=== PATIENT | male | born 1990 | race Caucasian/White ===

== ENCOUNTER 2017-05-05 16:09 | Emergency (ER) | payer BC ==
--- NOTE | 2017-05-05 16:31 | ER Document Report ---
ED Extremity Problem, Lower - General Chief Complaint: Foot Pain Stated Complaint: PAIN IN FEET Time Seen by Provider: 05/05/17 16:18 Mode of Arrival: Ambulatory Information source: Patient TRAVEL OUTSIDE OF THE [place] 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 but takes warfarin 10 mg twice daily since 2012, he denies any specific injury, has never been evaluated by podiatry and does not wear orthotics, however the he does have a inverted gait with flat arches - Related Data Allergies/Adverse Reactions: Penicillins Allergy (Verified 05/05/17 16:28) Past Medical History - General Information source: Patient - Social History Smoking Status: Never Smoker Family History: Reviewed & Not Pertinent Pulmonary Medical History: Reports: Hx Asthma Renal/ Medical History: Denies: Hx Peritoneal Dialysis - Immunizations Hx Diphtheria, Pertussis, Tetanus Vaccination: Yes Review of Systems - Review of Systems Constitutional: No symptoms reported EENT: No symptoms reported Cardiovascular: No symptoms reported Respiratory: No symptoms reported Gastrointestinal: No symptoms reported Genitourinary: No symptoms reported Male Genitourinary: No symptoms reported Musculoskeletal: See HPI Skin: No symptoms reported Hematologic/Lymphatic: No symptoms reported Neurological/Psychological: No symptoms reported -: Yes All other systems reviewed and negative Physical Exam - Vital signs Vitals: Temp Pulse Resp BP Pulse Ox 98.1 F 70 18 152/63 H 96 05/05/17 16:13 05/05/17 16:13 05/05/17 16:13 05/05/17 16:13 05/05/17 16:13 - Notes Notes: - General General appearance: Appears well, Alert In distress: None - HEENT Head: Normocephalic, Atraumatic Eyes: Normal Conjunctiva: Normal Extraocular movements intact: Yes Eyelashes: Normal Pupils: PERRL - Respiratory Respiratory status: No respiratory distress - Cardiovascular Rhythm: Regular - Abdominal Inspection: Normal - Back Back: Normal - Extremities General upper extremity: Normal inspection General lower extremity: Normal inspection distal sensation and motor is intact with 2+ DP pulses, patient has an inverted gait with flat arches - Neurological Neuro grossly intact: Yes Orientation: AAOx4 Rae Coma Scale Eye Opening: Spontaneous [place] Coma Scale Verbal: Oriented [place] Coma Scale Motor: Obeys Commands [place] Coma Scale Total: 15 - Psychological Associated symptoms: Normal affect, Normal mood - Skin Skin Temperature: Warm Skin Moisture: Dry Skin Color: Normal Course - Re-evaluation Re-evalutation: 05/05/17 17:38 Findings discussed with patient at bedside which are unremarkable for acute injury, he is noted to have a pes planus deformity which is likely the cause of his pain after landing on his feet for increased periods throughout the day, he was provided with hydrocodone Dosepak and information for follow-up with a glycerin operator, advised to return if symptoms worsen, patient acknowledges understanding and agreement with this plan - Vital Signs Vital signs: Temp Pulse Resp BP Pulse Ox 98.1 F 70 18 152/63 H 96 05/05/17 16:13 05/05/17 16:13 05/05/17 16:13 05/05/17 16:13 05/05/17 16:13 - Diagnostic Test Radiology reviewed: Image reviewed, Reports reviewed Discharge - Discharge Clinical Impression: Foot pain, bilateral Condition: Stable Disposition: HOME, SELF-CARE Additional Instructions: Follow up with your primary care provider in one to 2 days. Return to the emergency room immediately if symptoms worsen or any additional concerns. Prescriptions: Ibuprofen [Motrin 600 Mg Tablet] 600 mg PO TID #30 tablet Forms: Return to Work Referrals: TRUONG WINTERS DPM [ACTIVE STAFF] - Follow up as needed
--- NOTE | 2017-05-05 17:22 | RADIOLOGY REPORT (SQ) ---
EXAM DESCRIPTION: FOOT BILATERAL 3 VIEWS COMPLETED DATE/TIME: 05/05/2017 4:54 pm REASON FOR STUDY: pain, no injury COMPARISON: None. NUMBER OF VIEWS: Three views. TECHNIQUE: AP, lateral and oblique radiographic images acquired of the right and left foot. LIMITATIONS: None. FINDINGS: MINERALIZATION: Normal. BONES: No acute fracture or dislocation. No worrisome bone lesions. Pes planus deformity noted bila terally. JOINTS: No effusions. SOFT TISSUES: No soft tissue swelling. No radio opaque foreign body. OTHER: No other significant finding. IMPRESSION: No acute fracture or dislocation identified. Pes planus deformity noted bilaterally. TECHNICAL DOCUMENTATION: JOB ID: [id number] [employer]- All Rights Reserved
[2017-05-05] MEDS ORDERED: HYDROCODONE/ACETAMINOPHEN 5-325 MG 6 TAB/DSPK PO PRN (17:37)
[2017-05-05 17:45] VITALS: BP 149/67
== END 2017-05-05 17:45 | disposition home or self-care (01) ==
LOC: ER 16:09
DX: M21.42 Flat foot [pes planus] (acquired), left foot (principal); M21.41 Flat foot [pes planus] (acquired), right foot; R26.89 Other abnormalities of gait and mobility; M79.671 Pain in right foot; M79.672 Pain in left foot; J45.909 Unspecified asthma, uncomplicated; Z86.718 Personal history of other venous thrombosis and embolism; Z86.711 Personal history of pulmonary embolism; Z79.01 Long term (current) use of anticoagulants; Z88.0 Allergy status to penicillin
CPT/HCPCS: 99283

== ENCOUNTER 2017-05-09 22:59 | Emergency (ER) | payer BC ==
[2017-05-10] MEDS ORDERED: NAPROXEN 250 MG TABLET PO ONE (01:51)
--- NOTE | 2017-05-10 01:51 | ER Document Report ---
ED General - General Chief Complaint: Foot Pain Stated Complaint: FEET PAIN Time Seen by Provider: 05/10/17 01:01 Mode of Arrival: Ambulatory Information source: Patient Notes: 26-year-old male presents with complaints of bilateral foot pain. Patient notes he has a history of externally rotated feet. Patient denies any fevers or chills denies any shortness of breath bleeding. Patient is on Coumadin for DVTs. Patient notes the pain is only in the feet and ankles there is no pain in the calves or the legs themselves. TRAVEL OUTSIDE OF THE [place] IN LAST 30 DAYS: No - HPI Onset: Other Onset/Duration: Persistent Quality of pain: Achy Severity: Mild Pain Level: 1 Associated symptoms: Other Exacerbated by: Walking Relieved by: Denies Similar symptoms previously: Yes Recently seen / treated by doctor: Yes - Related Data Allergies/Adverse Reactions: Penicillins Allergy (Verified 05/05/17 16:28) Past Medical History - Social History Smoking Status: Never Smoker Cigarette use (# per day): No Chew tobacco use (# tins/day): No Smoking Education Provided: No Family History: Reviewed & Not Pertinent Patient has suicidal ideation: No Patient has homicidal ideation: No Pulmonary Medical History: Reports: Hx Asthma Renal/ Medical History: Denies: Hx Peritoneal Dialysis - Immunizations Hx Diphtheria, Pertussis, Tetanus Vaccination: Yes Review of Systems - Review of Systems Notes: REVIEW OF SYSTEMS: CONSTITUTIONAL : Denies fever, chills, or sweats. Denies recent illness. EENT: Denies eye, ear, throat, or mouth pain or symptoms. Denies nasal or sinus congestion or discharge. Denies throat, tongue, or mouth swelling or difficulty swallowing. CARDIOVASCULAR: Denies chest pain. Denies palpitations or racing or irregular heart beat. Denies ankle edema. RESPIRATORY: Denies cough, cold, or chest congestion. Denies shortness of breath, difficulty breathing, or wheezing. GASTROINTESTINAL: Denies abdominal pain or distention. Denies nausea, vomiting , or diarrhea. Denies blood in vomitus, stools, or per rectum. Denies black, tarry stools. Denies constipation. GENITOURINARY: Denies difficulty urinating, painful urination, burning, frequency, blood in urine, or discharge. MUSCULOSKELETAL: Bilateral ankle pain lateral malleolus SKIN: Denies rash, lesions or sores. HEMATOLOGIC : Denies easy bruising or bleeding. LYMPHATIC: Denies swollen, enlarged glands. NEUROLOGICAL: Denies confusion or altered mental status. Denies passing out or loss of consciousness. Denies dizziness or lightheadedness. Denies headache. Denies weakness or paralysis or loss of use of either side. Denies problems with gait or speech. Denies sensory loss, numbness, or tingling. Denies seizures. PSYCHIATRIC: Denies anxiety or stress. Denies depression, suicidal ideation, or homicidal ideation. ALL OTHER SYSTEMS REVIEWED AND NEGATIVE. Dictation was performed using [employer] recognition software PHYSICAL EXAMINATION: GENERAL: Well-appearing, well-nourished and in no acute distress. HEAD: Atraumatic, normocephalic. EYES: Pupils equal round and reactive to light, extraocular movements intact, sclera anicteric, conjunctiva are normal. ENT: Nares patent, oropharynx clear without exudates. Moist mucous membranes. NECK: Normal range of motion, supple without lymphadenopathy LUNGS: Breath sounds clear to auscultation bilaterally and equal. No wheezes rales or rhonchi. HEART: Regular rate and rhythm without murmurs ABDOMEN: Soft, nontender, nondistended abdomen. No guarding, no rebound. No masses appreciated. Musculoskeletal: Feet are bilaterally everted tender lateral malleolus NEUROLOGICAL: Cranial nerves grossly intact. Normal speech, normal gait. Normal sensory, motor exams PSYCH: Normal mood, normal affect. SKIN: Warm, Dry, normal turgor, no rashes or lesions noted. Physical Exam - Vital signs Vitals: Temp Pulse Resp BP Pulse Ox 98.5 F 65 18 128/76 H 96 05/09/17 23:03 05/09/17 23:03 05/09/17 23:03 05/09/17 23:03 05/09/17 23:03 Course - Re-evaluation Re-evalutation: 05/10/17 02:44 CBC CMP noted no significant abnormality patient INR is where he needs to be. He does not have any calf pain no signs of deep vein thrombosis. His pain is obviously in the lateral malleolus bilateral. Patient will be given orthopedic follow-up for his ankle pain After performing a Medical Screening Examination, I estimate there is LOW risk for INTRACRANIAL HEMORRHAGE, UNSTABLE SPINE FRACTURE, CENTRAL CORD SYNDROME, CAUDA EQUINA, THORACIC AORTIC DISSECTION, PNEUMOTHORAX, PERFORATED BOWEL, RUPTURED ABDOMINAL AORTIC ANEURYSM, ACUTE TENDON RUPTURE, COMPARTMENT SYNDROME, or OPEN FRACTURE, thus I consider the discharge disposition reasonable. Also, there is no evidence or peritonitis, sepsis, or toxicity. I have reevaluated this patient multiple times and no significant life threatening changes are noted. The patient and I have discussed the diagnosis and risks, and we agree with discharging home to follow-up with their primary doctor with the understanding that symptoms and presentations can change. We also discussed returning to the Emergency Department immediately if new or worsening symptoms occur. We have discussed the symptoms which are most concerning (e.g., bloody stool, fever, changing or worsening pain, vomiting) that necessitate immediate return. - Vital Signs Vital signs: Temp Pulse Resp BP Pulse Ox 98.5 F 65 18 128/76 H 96 05/09/17 23:03 05/09/17 23:03 05/09/17 23:03 05/09/17 23:03 05/09/17 23:03 - Laboratory Result Diagrams: 05/10/17 01:47 05/10/17 01:47 Laboratory results interpreted by me: 05/10/17 01:47 PT 29.5 H - Diagnostic Test Radiology reviewed: Reports reviewed - Previous x-ray reviewed Discharge - Discharge Clinical Impression: Foot pain, bilateral Condition: Stable Disposition: HOME, SELF-CARE Instructions: Tendon Strain ([facility]) Forms: Return to Work Referrals: CHIRAG LOWE PA-C [Primary Care Provider] - Follow up as needed BRAYDEN GASCA MD [ACTIVE STAFF] - Follow up in 3-5 days
[2017-05-10 01:59] LABS: ABSOLUTE BASOPHILS # (AUTO) 0.1 10^3/uL (0.0-0.2); ABSOLUTE EOSINOPHILS # (AUTO) 0.4 10^3/uL (0.0-0.6); ABSOLUTE LYMPHOCYTES (AUTO) 2.9 10^3/uL (0.5-4.7); ABSOLUTE NEUT (AUTO) 3.9 10^3/uL (1.7-8.2); BASOPHILS % (AUTO) 0.9 % (0-2); EOSINOPHILS % (AUTO) 4.3 % (0-6); HEMATOCRIT 45.1 % (37.9-51.0); HEMOGLOBIN 14.8 g/dL (13.5-17.0); HGB HCT DIFFERENCE -0.7; LYMPHOCYTES % (AUTO) 35.5 % (13-45); MEAN CORPUSCULAR HEMOGLOBIN 27.8 pg (27.0-33.4); MEAN CORPUSCULAR HGB CONC 32.8 g/dL (32.0-36.0); MEAN CORPUSCULAR VOLUME 85 fl (80-97); MONOCYTES % (AUTO) 11.7 % (3-13); RED BLOOD COUNT 5.32 10^6/uL (4.35-5.55); SEGMENTED NEUTROPHILS % (AUTO) 47.6 % (42-78); WHITE BLOOD COUNT 8.2 10^3/uL (4.0-10.5)
[2017-05-10 02:06] LABS: PROTHROMBIN TIME 29.5 SEC (11.4-15.4)
[2017-05-10 02:12] LABS: ALANINE AMINOTRANSFERASE 42 U/L (21-72); ALBUMIN 4.5 g/dL (3.5-5.0); ALKALINE PHOSPHATASE 67 U/L (38-126); ANION GAP 10 (5-19); ASPARTATE AMINO TRANSFERASE 30 U/L (17-59); BILIRUBIN,DIRECT 0.3 mg/dL (0.0-0.4); BILIRUBIN,TOTAL 0.5 mg/dL (0.2-1.3); BLOOD UREA NITROGEN 10 mg/dL (7-20); CALCIUM 9.4 mg/dL (8.4-10.2); CARBON DIOXIDE 25 mmol/L (22-30); CHLORIDE 106 mmol/L (98-107); CREATININE RESULT 0.76 mg/dL (0.52-1.25); GLUCOSE 96 mg/dL (75-110); POTASSIUM 4.3 mmol/L (3.6-5.0); SODIUM 141.3 mmol/L (137-145); TOTAL PROTEIN 8.1 g/dL (6.3-8.2)
[2017-05-10 02:51] VITALS: BP 120/58
== END 2017-05-10 02:50 | disposition home or self-care (01) ==
LOC: ER 22:59
DX: M79.671 Pain in right foot (principal); M79.672 Pain in left foot; M21.072 Valgus deformity, not elsewhere classified, left ankle; M21.071 Valgus deformity, not elsewhere classified, right ankle; M25.571 Pain in right ankle and joints of right foot; M25.572 Pain in left ankle and joints of left foot; I82.409 Acute embolism and thrombosis of unspecified deep veins of unspecified lower extremity; J45.909 Unspecified asthma, uncomplicated; Z79.01 Long term (current) use of anticoagulants; Z88.0 Allergy status to penicillin
CPT/HCPCS: 36415; 80053; 85025; 85610; 99283

== ENCOUNTER 2018-11-23 17:27 | Emergency (ER) | payer BC ==
[2018-11-23] MEDS ORDERED: IPRATROPIUM/ALBUTEROL 0.5-2.5 MG/3 ML AMPUL NEB ONE (21:37)
[2018-11-23] MEDS ORDERED: PREDNISONE 20 MG TABLET PO ONE (21:38)
--- NOTE | 2018-11-23 21:57 | ER Document Report ---
HPI - HPI Patient complains to provider of: Cough Time Seen by Provider: 11/23/18 20:29 Pain Level: 1 Context: Patient is a 28-year-old male presents to the emergency department complaining of cough and sore throat when he coughs for the last 2 weeks. Patient states he does have a history of asthma and feels as though his home albuterol treatments are no longer helping him. Patient is denying any fever, nausea, vomiting, diarrhea. Past medical history: Asthma, MTHFR Medications: Albuterol, Warfarin Allergies: PCN - REPRODUCTIVE Reproductive: DENIES: : Past Medical History - General Information source: Patient - Social History Smoking Status: Never Smoker Family History: Reviewed & Not Pertinent Patient has suicidal ideation: No Patient has homicidal ideation: No Pulmonary Medical History: Reports: Hx Asthma Renal/ Medical History: Denies: Hx Peritoneal Dialysis - Immunizations Hx Diphtheria, Pertussis, Tetanus Vaccination: Yes Vertical Provider Document - CONSTITUTIONAL Agree With Documented VS: Yes Notes: GENERAL: Alert, interacts well. No acute distress. HEAD: Normocephalic, atraumatic. EYES: Pupils equal, round, and reactive to light. Extraocular movements intact. ENT: Oral mucosa moist, tongue midline. Nares patent, TM's intact, Nonerythematous, nonbulging. Pharynx within normal limits, no palatal petechiae or exudate noted NECK: Full range of motion. Supple. Trachea midline. No lymphadenopathy appreciated LUNGS: no rales, or rhonchi. No respiratory distress. Inspiratory and expiratory wheezes heard in all lung [place]. HEART: Regular rate and rhythm. No murmur ABDOMEN: Soft, non-tender. Non-distended. Bowel sounds present in all 4 quadrants. EXTREMITIES: Moves all 4 extremities spontaneously. No edema, normal radial and dorsalis pedis pulses bilaterally. No cyanosis. BACK: no cervical, thoracic, lumbar midline tenderness. No saddle anesthesia, normal distal neurovascular exam. NEUROLOGICAL: Alert and oriented x3. Normal speech. cranial nerves II through XII grossly intact PSYCH: Normal affect, normal mood. SKIN: Warm, dry, normal turgor. No rashes or lesions noted. - INFECTION CONTROL TRAVEL OUTSIDE OF THE [place] IN LAST 30 DAYS: No Course - Re-evaluation Re-evalutation: After breathing treatment in the emergency room patient no longer has wheezes in any lung [place]. Patient states "I feel a whole lot better." Patient's chest x-ray shows no signs of pneumonia, no signs of pneumothorax or rib fracture. Discussed use of albuterol with spacer and prednisone for asthma care. Discussed need for close follow-up with patient's primary care provider in the next 24-48 hours. - Vital Signs Vital signs: Temp Pulse Resp BP Pulse Ox 98.3 F 80 24 H 140/54 H 96 11/23/18 17:33 11/23/18 17:33 11/23/18 17:33 11/23/18 17:33 11/23/18 17:33 Discharge - Discharge Clinical Impression: Asthma exacerbation Qualifiers: Asthma severity: mild Asthma persistence: unspecified Qualified Code(s): J45.901 - Unspecified asthma with (acute) exacerbation Condition: Stable Disposition: HOME, SELF-CARE Instructions: Asthma ([facility]) Additional Instructions: As we discussed you have been seen and treated in the emergency department for an exacerbation of your asthma. Please take your albuterol inhaler every 4 hours for the next 24 hours and then as needed after that. Please continue to take prescription prednisone for the next couple of days. Please return to the emergency room for any other concerning symptoms. Prescriptions: Albuterol Sulfate [Proair HFA Inhalation Aerosol 8.5 gm MDI] 2 puff IH Q4H PRN #1 mdi PRN Reason: Prednisone [Deltasone 20 mg Tablet] 3 tab PO DAILY 5 Days tablet Referrals: LICO WARNER PA-C [Primary Care Provider] - Follow up as needed
--- NOTE | 2018-11-23 22:04 | RADIOLOGY REPORT (SQ) ---
EXAM DESCRIPTION: XR CHEST 2 VIEWS COMPLETED DATE/TME: 11/23/2018 21:38 CLINICAL HISTORY: 28 years, Male, wheezing, cough Chest two views Compared to 09/09/2016. HISTORY: Shortness of breath, cough. FINDINGS: The heart is not enlarged. No consolidations or pleural effusions. No pulmonary edema or pneumothorax. IMPRESSION: No acute disease.
[2018-11-23 22:57] VITALS: BP 131/63
== END 2018-11-23 22:57 | disposition home or self-care (01) ==
LOC: ER 17:27
DX: J45.901 Unspecified asthma with (acute) exacerbation (principal); R05 Cough; J02.9 Acute pharyngitis, unspecified; Z79.899 Other long term (current) drug therapy; Z79.01 Long term (current) use of anticoagulants; Z88.0 Allergy status to penicillin
CPT/HCPCS: 94640; 99283; 71046; J7512; J7620

== ENCOUNTER 2018-12-07 09:04 | Emergency (ER) | payer BC ==
[2018-12-07 09:16] VITALS: BP 136/75
--- NOTE | 2018-12-07 10:15 | RADIOLOGY REPORT (SQ) ---
EXAM DESCRIPTION: RIBS LEFT W/PA CHEST COMPLETED DATE/TIME: 12/07/2018 10:05 am REASON FOR STUDY: cough, left rib pain COMPARISON: 11/23/2018 and 09/09/2016. TECHNIQUE: Frontal view of the chest and additional views of the left ribs acquired. NUMBER OF VIEWS: Five view. LIMITATIONS: None. FINDINGS: FRONTAL CXR: Mild chronic scarring in the right lung base. No pneumothorax. No pleural e ffusion. No atelectasis or infiltrates. RIBS: No displaced rib fractures. No lytic or blastic bony lesions. OTHER: No other significant finding. IMPRESSION: NO PNEUMOTHORAX. NO DISPLACED RIB FRACTURES. COMMENT: SITE OF TRAUMA/COMPLAINT MARKED/STAMP COMPLETED: YES. TECHNICAL DOCUMENTATION: JOB ID: [id number] [employer]- All Rights Reserved Reading location - IP/workstation name: [email or web address]
--- NOTE | 2018-12-07 11:23 | ER Document Report ---
HPI - HPI Time Seen by Provider: 12/07/18 09:22 Pain Level: 2 Notes: Patient is a 28-year-old male presenting with chief complaint of left anterior rib pain. Patient reports he has been coughing for several weeks. Of note patient does have a history of pulmonary embolisms and takes warfarin. Patient states this does not feel the same as when he has had a PE in the past. Patient does have pain with deep breaths but denies any shortness of breath. Multiple family members have had similar upper respiratory symptoms. - CARDIOVASCULAR Cardiovascular: REPORTS: Chest pain - L rib pain - RESPIRATORY Respiratory: REPORTS: Coughing - REPRODUCTIVE Reproductive: DENIES: : Past Medical History - General Information source: Patient - Social History Smoking Status: Never Smoker Chew tobacco use (# tins/day): No Frequency of alcohol use: None Drug Abuse: None Family History: Reviewed & Not Pertinent Patient has suicidal ideation: No Patient has homicidal ideation: No - Past Medical History Cardiac Medical History: Reports: Hx DVT, Hx Pulmonary Embolism Pulmonary Medical History: Reports: Hx Asthma Renal/ Medical History: Denies: Hx Peritoneal Dialysis Past Surgical History: Reports: Hx Bowel Surgery - hernia - Immunizations Hx Diphtheria, Pertussis, Tetanus Vaccination: Yes Vertical Provider Document - CONSTITUTIONAL Notes: PHYSICAL EXAMINATION: GENERAL: Well-appearing, well-nourished and in no acute distress. HEAD: Atraumatic, normocephalic. EYES: Pupils equal round extraocular movements intact, conjunctiva are normal. ENT: Nares patent NECK: Normal range of motion LUNGS: No respiratory distress, lung sounds clear and equal bilaterally. Musculoskeletal: Normal range of motion, point tenderness to left anterior ribs. NEUROLOGICAL: Normal speech, normal gait. PSYCH: Normal mood, normal affect. SKIN: Warm, Dry, normal turgor, no rashes or lesions noted. - INFECTION CONTROL TRAVEL OUTSIDE OF THE [place] IN LAST 30 DAYS: No Course - Re-evaluation Re-evalutation: X-ray of the chest and left ribs were negative for any fractures. No pneumothorax seen. Due to patient's history of PE I did send off a d-dimer which was negative. Likely musculoskeletal pain due to coughing. Patient instructed to splint the area and continue to take good deep breaths. Diagnosed with viral upper respiratory illness. - Vital Signs Vital signs: Temp Pulse Resp BP Pulse Ox 97.5 F 71 18 136/75 H 94 12/07/18 09:15 12/07/18 09:15 12/07/18 09:15 12/07/18 09:15 12/07/18 09:15 Discharge - Discharge Clinical Impression: Cough, Rib pain Condition: Stable Disposition: HOME, SELF-CARE Additional Instructions: Costochondritis Your chest pain is coming from the rib cartilages in the chest wall. This is often caused by subtle straining of the ribs near the breastbone. The strain can occur from a mild injury, coughing or sneezing with a "cold," vigorous vomiting, or even from rib compression while sleeping. Often the pain doesn't begin until a couple of days after the strain. Persons with arthritis are especially prone to this type of pain, due to inflammation of the cartilage joints near the breast bone. But often, there is no clear reason why it happens. Rest from strenuous physical activity. This kind of chest pain is usually made worse by movement of the chest. Depending on the symptoms, we may prescribe medicine for pain and inflammation. Apply gentle warmth to the painful area for 15 minutes every hour or two. You should call contact the doctor immediately if things change. Further evaluation is needed if you develop a fever or cough, if the nature of the pain changes, or if you become short of breath. Prescriptions: Benzonatate [Tessalon Perles 100 mg Capsule] 100 mg PO Q8HP PRN #40 capsule PRN Reason: Referrals: LICO WARNER PA-C [Primary Care Provider] - Follow up as needed
== END 2018-12-07 11:30 | disposition home or self-care (01) ==
LOC: ER 09:04
DX: J06.9 Acute upper respiratory infection, unspecified (principal); B97.89 Other viral agents as the cause of diseases classified elsewhere; R07.81 Pleurodynia; R05 Cough; Z86.711 Personal history of pulmonary embolism; Z86.718 Personal history of other venous thrombosis and embolism; Z79.01 Long term (current) use of anticoagulants
CPT/HCPCS: 36415; 85379; 99283